=== PATIENT | female | born 1960 | race Caucasian/White ===

== ENCOUNTER 2021-04-28 01:31 | Emergency (ER) | payer OTHER ==
[2021-04-28 01:43] VITALS: BP 141/75; PULSE 85; TEMP 98; BMI 22.2
[2021-04-28] MEDS ORDERED: methylPREDNISolone NA SUCC 125 MG/2 ML VIAL IVPUSH ONE (02:59)
[2021-04-28] MEDS ORDERED: FAMOTIDINE 20 MG/50 ML IVPB 20 MG/50 ML MG IVPB ONE ×2 (02:59→03:18)
[2021-04-28] MEDS ORDERED: methylPREDNISolone NA SUCC 125 MG/2 ML VIAL ONE (03:18)
== END 2021-04-28 04:54 | disposition home or self-care (01) ==
LOC: JER 01:31
PROC: 3E033GC Introduction of Other Therapeutic Substance into Peripheral Vein, Percutaneous Approach (ICD-10-PCS; principal; 2021-04-28)
DX: R21 Rash and other nonspecific skin eruption (principal)
CPT/HCPCS: 96365; 96375; 99284-25

== ENCOUNTER 2021-04-29 03:19 | Emergency (ER) | payer OTHER ==
[2021-04-29 03:36] VITALS: BP 167/80; PULSE 82; TEMP 98.2; BMI 25.2
== END 2021-04-29 06:00 | disposition left against medical advice (07) ==
LOC: JER 03:19
DX: T78.40XA Allergy, unspecified, initial encounter (principal)
CPT/HCPCS: 99281-25

== ENCOUNTER 2022-01-03 04:18 | Day surgery (SDC) | payer OTHER ==
[2022-01-02 16:29] VITALS: BMI 20.2
[~2022-01-03 04:18] MED LIST: ACETAMINOPHEN 325 MG TABLET (FP) PO PRN
[2022-01-03] MEDS ORDERED: LIDOCAINE HCL/PF 1% SDV 5ML VIAL ONE (07:23)
[2022-01-03] MEDS ORDERED: POVIDONE-IODINE 5% OPHTHALMIC PREP 30 ML SOLUTION ONE (07:23)
[2022-01-03] MEDS ORDERED: TETRACAINE 0.5% OPHTH SOLN 2 ML BOTTLE ONE (07:23)
[2022-01-03] MEDS ORDERED: BSS (NA/CA/MG/K) BALANCED SALT SOLUTION OPHTH SOLN 15 ML BOTTLE ONE (07:23)
[2022-01-03 07:24] VITALS: RESP 18
[2022-01-03] MEDS ORDERED: PHENYLEPHRINE 2.5% OPTHALMIC DROP BOTTLE ONE (07:24)
[2022-01-03] MEDS ORDERED: KETOROLAC TROMETHAMINE 0.5% EYE DROP 1 DROP DROPS ONE (07:24)
[2022-01-03] MEDS ORDERED: CYCLOPENTOLATE HCL 1% OPHTH SOLN 2 ML BOTTLE ONE (07:24)
[2022-01-03] MEDS ORDERED: OFLOXACIN 0.3% OPHTHALMIC SOLUTION 5 ML BOTTLE ONE (07:24)
[2022-01-03] MEDS ORDERED: TROPICAMIDE 1% OPHTH SOLN 15 ML BOTTLE ONE (07:24)
[2022-01-03] MEDS: TROPICAMIDE 1% OPHTH SOLN 15 ML BOTTLE OP SCH ×3 (07:45→08:00)
[2022-01-03] MEDS: CYCLOPENTOLATE HCL 1% OPHTH SOLN 2 ML BOTTLE OP SCH ×3 (07:45→08:00)
[2022-01-03] MEDS: OFLOXACIN 0.3% OPHTHALMIC SOLUTION 5 ML BOTTLE OP SCH ×3 (07:45→08:00)
[2022-01-03] MEDS: KETOROLAC TROMETHAMINE 0.5% EYE DROP 1 DROP DROPS OP SCH ×3 (07:45→08:00)
[2022-01-03] MEDS: PHENYLEPHRINE 2.5% OPHTH SOLN 15 ML BOTTLE OP SCH ×3 (07:45→08:00)
[2022-01-03] MEDS ORDERED: MIDAZOLAM HCL 2 MG/2 ML SINGLE DOSE VIAL ONE (07:54)
[2022-01-03] MEDS ORDERED: PROPOFOL 40 ML ONE (08:52)
[2022-01-03] MEDS ORDERED: TETRACAINE 0.5% OPHTH SOLN 2 ML BOTTLE OS ONE ×2 (09:04→09:05)
[2022-01-03] MEDS ORDERED: POVIDONE-IODINE 5% OPHTHALMIC PREP 30 ML SOLUTION OS ONE (09:07)
[2022-01-03] MEDS ORDERED: BSS (NA/CA/MG/K) BALANCED SALT SOLUTION OPHTH SOLN 15 ML BOTTLE IO ONE (09:11)
[2022-01-03] MEDS ORDERED: LIDOCAINE HCL 1% PRESERVATIVE FREE - 30ML VIAL IO ONE (09:12)
[2022-01-03] MEDS ORDERED: TRYPAN BLUE 0.5 ML DISP.SYRIN IO ONE (09:13)
[2022-01-03] MEDS ORDERED: CHONDROITIN SU A/HYALUR SOD 1 KIT IO ONE (09:14)
[2022-01-03] MEDS ORDERED: HYALURONATE SODIUM 14 MG/ML DISP.SYRIN IO ONE (09:14)
[2022-01-03] MEDS ORDERED: EPINEPHrine/PF 1 MG/1 ML (1:1,000) AMPULE SQ ONE (09:19)
[2022-01-03 10:37] VITALS: BP 146/74; PULSE 69; TEMP 97.7
== END 2022-01-03 10:35 | disposition home or self-care (01) ==
LOC: JASU-SURG 04:18
PROVIDERS: ATTEND Ophthalmology
PROC: 08RK3JZ Replacement of Left Lens with Synthetic Substitute, Percutaneous Approach (ICD-10-PCS; principal; 2022-01-03 09:13)
DX: H26.8 Other specified cataract (principal)
CPT/HCPCS: 82962

== ENCOUNTER 2022-01-24 05:05 | Day surgery (SDC) | payer OTHER ==
[2022-01-22 15:39] VITALS: BMI 20.2
[2022-01-24] MEDS ORDERED: LIDOCAINE HCL/PF 1% SDV 5ML VIAL ONE ×2 (07:26→07:32)
[2022-01-24] MEDS ORDERED: POVIDONE-IODINE 5% OPHTHALMIC PREP 30 ML SOLUTION ONE ×2 (07:26→07:32)
[2022-01-24] MEDS ORDERED: TETRACAINE 0.5% OPHTH SOLN 2 ML BOTTLE ONE ×2 (07:26→07:32)
[2022-01-24] MEDS ORDERED: EPINEPHrine/PF 1 MG/1 ML (1:1,000) AMPULE ONE ×2 (07:26→07:31)
[2022-01-24] MEDS ORDERED: TRYPAN BLUE 0.5 ML DISP.SYRIN ONE (07:32)
[2022-01-24] MEDS ORDERED: KETOROLAC TROMETHAMINE 0.5% EYE DROP 1 DROP DROPS ONE (08:23)
[2022-01-24] MEDS ORDERED: CYCLOPENTOLATE HCL 1% OPHTH SOLN 2 ML BOTTLE ONE (08:23)
[2022-01-24] MEDS ORDERED: OFLOXACIN 0.3% OPHTHALMIC SOLUTION 5 ML BOTTLE ONE (08:25)
[2022-01-24] MEDS ORDERED: PHENYLEPHRINE 2.5% OPTHALMIC DROP BOTTLE ONE (08:26)
[2022-01-24] MEDS: OFLOXACIN 0.3% OPHTHALMIC SOLUTION 5 ML BOTTLE OP SCH ×3 (08:45→08:55)
[2022-01-24] MEDS: KETOROLAC TROMETHAMINE 0.5% EYE DROP 1 DROP DROPS OP SCH ×2 (08:45→08:55)
[2022-01-24] MEDS: CYCLOPENTOLATE HCL 1% OPHTH SOLN 2 ML BOTTLE OP SCH ×3 (08:45→08:55)
[2022-01-24] MEDS: PHENYLEPHRINE 2.5% OPHTH SOLN 15 ML BOTTLE OP SCH ×3 (08:45→08:55)
[2022-01-24] MEDS: TROPICAMIDE 1% OPHTH SOLN 15 ML BOTTLE OP SCH ×3 (08:45→08:55)
[2022-01-24] MEDS ORDERED: MIDAZOLAM HCL 2 MG/2 ML SINGLE DOSE VIAL ONE (10:08)
[2022-01-24] MEDS ORDERED: TETRACAINE 0.5% OPHTH SOLN 2 ML BOTTLE OD ONE (10:12)
[2022-01-24] MEDS ORDERED: POVIDONE-IODINE 5% OPHTHALMIC PREP 30 ML SOLUTION OD ONE (10:13)
[2022-01-24] MEDS ORDERED: BSS (NA/CA/MG/K) BALANCED SALT SOLUTION OPHTH SOLN 15 ML BOTTLE IO ONE (10:19)
[2022-01-24] MEDS ORDERED: LIDOCAINE HCL 1% PRESERVATIVE FREE - 30ML VIAL IO ONE (10:20)
[2022-01-24] MEDS ORDERED: TRYPAN BLUE 0.5 ML DISP.SYRIN IO ONE (10:20)
[2022-01-24] MEDS ORDERED: HYALURONATE SODIUM 23 MG/1 ML SYRINGE IO ONE (10:21)
[2022-01-24] MEDS ORDERED: CHONDROITIN SU A/HYALUR SOD 1 KIT IO ONE (10:21)
[2022-01-24] MEDS ORDERED: EPINEPHrine/PF 1 MG/1 ML (1:1,000) AMPULE IC ONE (10:28)
[2022-01-24] MEDS ORDERED: ACETAMINOPHEN 325 MG TABLET (FP) ONE (11:38)
[2022-01-24 14:25] VITALS: RESP 18
[2022-01-24 14:37] VITALS: BP 150/69; PULSE 63; TEMP 98.7
== END 2022-01-24 12:25 | disposition home or self-care (01) ==
LOC: JASU-SURG 05:05
PROVIDERS: ATTEND Ophthalmology
PROC: 08RJ3JZ Replacement of Right Lens with Synthetic Substitute, Percutaneous Approach (ICD-10-PCS; principal; 2022-01-24 10:19)
DX: H26.9 Unspecified cataract (principal)